=== PATIENT | male | born 1940 | race Caucasian/White ===

== ENCOUNTER 2018-06-08 01:59 | Emergency (ER) | payer OTHER ==
[~2018-06-08] VITALS: Ht 180.3 cm; Wt 99.8 kg
--- NOTE | 2018-06-08 02:25 | NUR ---
pt alberto home for report caregiver, son who takes care of pt, was arrested and taken in custody, now has no assistance at home, c/o generalized body aches, no trauma, nonambulatory w/ bilateral nephrostomy, FC, gets home health assistance daily. AOx4, afebrile w/ resp even & unlabored, nad noted. pt in gown, HOB elevated w/ both siderails up, bed low to ground, call light within reach for pt safety. Dr. Ayers at bedside for further eval.
--- NOTE | 2018-06-08 02:49 | NUR ---
pt given water and pillow for comfort. pt HOB elevated, drinking w/ no aspiration of flds noted.
--- NOTE | 2018-06-08 03:20 | NUR ---
Pt resting comfortably in bed w/ resp even & unlabored, nad noted. Bed low to ground, both siderails up w/ call light in reach.
--- NOTE | 2018-06-08 03:54 | NUR ---
pt lying in bed, talking on cellphone, speaking full & complete sentences w/ resp even & unlabored, nad noted. Will continue to monitor.
--- NOTE | 2018-06-08 04:11 | NUR ---
Per pt request, called son, Jalil Sanders , advised he is home now and able to receive pt. Dr. Ayers updated on pt status.
--- NOTE | 2018-06-08 04:17 | NUR ---
CALLED [facility] FOR S TRANSPORT TO [facility], ETA [phone] PER SCOOBY, TRIP NUMBER [id number]
[2018-06-08 05:08] VITALS: BP 169/95
--- NOTE | 2018-06-08 05:09 | NUR ---
Pt AOX4 w/ resp even & unlabored, nad noted. Report given to Rickie Schwarz EMT for [facility]. Patient discharged to home via [facility] ambulance transport in stable condition. Written and verbal after care instructions given. Patient verbalizes understanding of instruction.
== END 2018-06-08 05:09 | disposition home or self-care (01) ==
LOC: ER 02:01
DX: E66.01 Morbid (severe) obesity due to excess calories (principal); Z85.46 Personal history of malignant neoplasm of prostate; Z85.51 Personal history of malignant neoplasm of bladder; Z98.890 Other specified postprocedural states